=== PATIENT | male | born 1940 | race Caucasian/White ===

== ENCOUNTER 2022-02-14 08:10 | Emergency (ER) | payer MEDICARE, BC ==
[~2022-02-14] VITALS: Wt 95.2 kg
[2022-02-14] MEDS ORDERED: PROAIR HFA0.09 MG/AC IH (08:25)
[2022-02-14] MEDS ORDERED: ADALAT CC30 M1 PO (08:25)
[2022-02-14] MEDS ORDERED: LASIX40 M1 PO (08:27)
[2022-02-14] MEDS ORDERED: ZESTRIL10 M1 PO (08:27)
[2022-02-14] MEDS ORDERED: ATROVENT HFA IH (08:27)
[2022-02-14] MEDS ORDERED: DAILY VALUE1 EACH PO (08:28)
[2022-02-14] MEDS ORDERED: MELOXICAM15 MG PO (08:28)
[2022-02-14] MEDS ORDERED: K-TAB20 MEQ PO (08:28)
[2022-02-14] MEDS ORDERED: PRILOSEC 20MG20 MG PO (08:29)
[2022-02-14] MEDS ORDERED: ZOCOR20 M1 PO (08:29)
[2022-02-14] MEDS ORDERED: XALATAN 2.5 ML2.5 ML OU (08:29)
[2022-02-14 09:07] LABS: URINE WBC 0 /hpf (0-3)
[2022-02-14 09:09] LABS: BASO # 0.02 K/mm3 (0.02-0.10); EOS # 0.18 K/mm3 (0.04-0.40); EOS % 1.8 % (0.0-4.0); HEMATOCRIT 37.9 % (42.0-52.0); HEMOGLOBIN 12.6 g/dL (13.5-18.0); LYMPH# 2.13 K/mm3 (1.50-4.00); MEAN CELL VOLUME 98 fl (78-100); MEAN CORPUSCULAR HEMOGLOBIN 33 pg (27-31); MEAN CORPUSCULAR HGB CONC 33 g/dL (33-37); MEAN PLATELET VOLUME 9.5 fl (7.4-10.4); MONO # 0.87 K/mm3 (0.20-0.80); NEU # 6.55 K/mm3 (1.40-6.50); PLATELET COUNT 141 K/mm3 (130-400); RED BLOOD COUNT 3.85 M/mm3 (4.20-5.60); RED CELL DISTRIBUTION WIDTH 12.3 % (11.5-14.5); WHITE BLOOD COUNT 9.8 K/mm3 (4.8-10.8)
[2022-02-14 09:15] LABS: ALBUMIN 4.1 g/dL (3.4-4.8); POTASSIUM 4.6 mmol/L (3.5-5.1)
[2022-02-14 09:16] LABS: CALCIUM 9.5 mg/dL (8.3-10.5)
[2022-02-14 09:17] LABS: TOTAL PROTEIN 6.9 g/dL (6.2-8.1)
[2022-02-14 09:19] LABS: TOTAL BILIRUBIN 0.8 mg/dL (0.2-1.2)
[2022-02-14 09:26] LABS: PH-URINE 6.5 (5.0 - 8.0); URINE APPEARANCE CLEAR; URINE BILIRUBIN NEGATIVE (NEGATIVE); URINE BLOOD NEGATIVE (NEGATIVE); URINE COLOR YELLOW; URINE GLUCOSE NEGATIVE (NEGATIVE); URINE KETONE NEGATIVE (NEGATIVE); URINE LEUKOCYTE ESTERASE NEGATIVE (NEGATIVE); URINE NITRATE NEGATIVE (NEGATIVE); URINE PROTEIN(semi-quant) NEGATIVE (NEGATIVE); URINE UROBILINOGEN NORMAL (NORMAL)
[2022-02-14] MEDS ORDERED: CIPRO500 M1 PO (12:07)
[2022-02-14] MEDS ORDERED: ZOFRAN ODT4 MG PO (12:07)
[2022-02-14] MEDS ORDERED: METRONIDAZOLE500 M1 PO (12:07)
[2022-02-14] MEDS ORDERED: NORCO 325 MG-51 TA1 PO (12:08)
[2022-02-14 13:05] VITALS: BP 133/71
== END 2022-02-14 12:27 | disposition home or self-care (01) ==
LOC: ED 08:10
PROVIDERS: Nurse Practitioner
DX: K57.32 Diverticulitis of large intestine without perforation or abscess without bleeding (principal); Z28.310 Unvaccinated for COVID-19
CPT/HCPCS: Q9967